=== PATIENT | male | born 1950 | race Caucasian/White ===

== ENCOUNTER → 2019-07-10 | Emergency (ER) | payer OTHER ==
[~2019-07-10] VITALS: Ht 177.8 cm; Wt 72.0 kg
[~2019-07-10] MED LIST: CEPH500C5 PO; cephalexin 500mg capsule PO ONE; normal saline 1000ML IV soln IV ONE
[2019-07-10 11:32] LABS: CLARITY,URINE BLOODY (Clear); COLOR,URINE RED (Yellow); UA COLLECTION TYPE FOLEY CATH
[2019-07-10 11:44] LABS: MUCUS STRANDS FEW /LPF (Neg); RENAL CELLS, URINE FEW /HPF; SQUAMOUS EPITHELIAL CELL,UR NONE SEEN /LPF (FEW); TRANSITIONAL EPI CELLS,URINE FEW /HPF
[2019-07-10 11:47] LABS: AMORPHOUS PHOSPHATES 2+; BACTERIA,URINE 4+ /HPF (Neg); RBC,URINE TNTC /HPF (0-2); WBC CLUMPS,URINE FEW /HPF (NEGATIVE); WBC,URINE TNTC /HPF (0-4)
[2019-07-10 11:48] LABS: HYALINE CASTS 0-3 /LPF (NEGATIVE)
[2019-07-10 12:01] LABS: BASOPHILS % (AUTO) 0.3 % (0-1); EOSINOPHILS % (AUTO) 0.4 % (0-6); HEMATOCRIT 36.5 % (42.0-52.0); HEMOGLOBIN 12.2 g/dl (14.0-17.9); LYMPHOCYTES # (AUTO) 0.9 X10'3 (1.1-4.8); MEAN CORPUSCULAR HEMOGLOBIN 29.7 PG (27.0-31.0); MEAN CORPUSCULAR HGB CONC 33.6 g/dL (33.0-36.5); MEAN CORPUSCULAR VOLUME 88.4 FL (78-98); MEAN PLATELET VOLUME 6.9 FL (7.4-10.4); MONOCYTES # (AUTO) 0.3 X10'3 (0-0.9); MONOCYTES % (AUTO) 3.6 % (2-12); NEUTROPHILS # (AUTO) 7.6 X10'3 (1.8-7.7); NEUTROPHILS % (AUTO) 85.7 % (42-75); PLATELET COUNT 396 X10'3 (140-440); RED BLOOD COUNT 4.12 X10'6 (4.70-6.10); RED CELL DISTRIBUTION WIDTH 13.6 % (11.5-14.5); WHITE BLOOD COUNT 8.9 X10'3 (4.5-11.0)
[2019-07-10 12:12] LABS: PARTIAL THROMBOPLASTIN TIME 27 SECONDS (22-32)
[2019-07-10 12:15] LABS: ALANINE AMINOTRANSFERASE 25 U/L (12-78); ALBUMIN 2.9 G/DL (3.4-5.0); ALBUMIN/GLOBULIN RATIO 0.6 (1.1-1.5); ALKALINE PHOSPHATASE 86 IU/L (46-116); ANION GAP 8 (8-16); ASPARTATE AMINO TRANSFERASE 14 U/L (10-37); BILIRUBIN,TOTAL 0.4 MG/DL (0.1-1.0); BLOOD UREA NITROGEN 14 MG/DL (7-18); BUN/CREATININE RATIO 14.7 (5.4-32.0); CALCIUM 10.6 MG/DL (8.5-10.1); CHLORIDE 99 MMOL/L (99-107); CREATININE 0.95 MG/DL (0.60-1.10); GLUCOSE 111 MG/DL (70-104); MAGNESIUM 1.8 MG/DL (1.5-2.4); SODIUM 134 MMOL/L (135-145); TOTAL CARBON DIOXIDE 27.4 MMOL/L (24-32); TOTAL PROTEIN 7.8 G/DL (6.4-8.2); eGFR 78 ML/MIN
[2019-07-10 14:03] VITALS: BP 152/76
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
== END | disposition home or self-care (01) ==
LOC: ER 08:32
DX: T83.83XA Hemorrhage due to genitourinary prosthetic devices, implants and grafts, initial encounter (principal); N39.0 Urinary tract infection, site not specified; I25.10 Atherosclerotic heart disease of native coronary artery without angina pectoris; I10 Essential (primary) hypertension; Z98.890 Other specified postprocedural states; Z72.89 Other problems related to lifestyle; Z79.2 Long term (current) use of antibiotics; Y69 Unspecified misadventure during surgical and medical care; Y92.89 Other specified places as the place of occurrence of the external cause
CPT/HCPCS: 36415; 51702; 71045; 80053; 81001; 83605; 83735; 84145; 85025; 85610; 85730; 87040; 87077; 87088; 87186; 93005; 96361; 99284

== ENCOUNTER 2019-08-05 15:53 | Inpatient (IN) | payer MEDICARE, OTHER ==
[~2019-08-05] VITALS: Ht 175.3 cm; Wt 75.0 kg
[~2019-08-05 15:53] MED LIST changes: -cephalexin 500mg capsule PO ONE; -normal saline 1000ML IV soln IV ONE
--- NOTE | 2019-08-05 16:48 | NUR ---
pt in ct, labs drawn prior, type and screen drawn. 20g started in rac.
[2019-08-05 18:01] LABS: BASOPHILS % (AUTO) 0.5 % (0-1); EOSINOPHILS % (AUTO) 0 % (0-6); HEMATOCRIT 34.5 % (42.0-52.0); HEMOGLOBIN 11.7 g/dl (14.0-17.9); LYMPHOCYTES # (AUTO) 0.7 X10'3 (1.1-4.8); LYMPHOCYTES % (AUTO) 9.9 % (21-51); MEAN CORPUSCULAR HEMOGLOBIN 29.1 PG (27.0-31.0); MEAN CORPUSCULAR VOLUME 85.6 FL (78-98); MEAN PLATELET VOLUME 7.5 FL (7.4-10.4); MONOCYTES # (AUTO) 0.4 X10'3 (0-0.9); MONOCYTES % (AUTO) 5.2 % (2-12); NEUTROPHILS # (AUTO) 6.3 X10'3 (1.8-7.7); NEUTROPHILS % (AUTO) 84.4 % (42-75); PLATELET COUNT 226 X10'3 (140-440); RED BLOOD COUNT 4.03 X10'6 (4.70-6.10); RED CELL DISTRIBUTION WIDTH 14.4 % (11.5-14.5); WHITE BLOOD COUNT 7.5 X10'3 (4.5-11.0)
[2019-08-05 18:24] LABS: ALANINE AMINOTRANSFERASE 27 U/L (12-78); ALBUMIN/GLOBULIN RATIO 0.7 (1.1-1.5); ALKALINE PHOSPHATASE 72 IU/L (46-116); ANION GAP 12 (8-16); ASPARTATE AMINO TRANSFERASE 22 U/L (10-37); BILIRUBIN,TOTAL 0.3 MG/DL (0.1-1.0); BLOOD UREA NITROGEN 11 MG/DL (7-18); BUN/CREATININE RATIO 8.1 (5.4-32.0); CALCIUM 9.5 MG/DL (8.5-10.1); CHLORIDE 99 MMOL/L (99-107); CREATININE 1.35 MG/DL (0.60-1.10); GLUCOSE 119 MG/DL (70-104); MAGNESIUM 1.6 MG/DL (1.5-2.4); POTASSIUM 3.8 MMOL/L (3.5-5.1); SODIUM 132 MMOL/L (135-145); TOTAL CARBON DIOXIDE 21.3 MMOL/L (24-32); TOTAL PROTEIN 7.5 G/DL (6.4-8.2); eGFR 52 ML/MIN
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
[2019-08-05 18:36] LABS: CLARITY,URINE CLEAR (Clear); COLOR,URINE YELLOW (Yellow); GLUCOSE, URINE NEGATIVE (Neg); KETONES,URINE NEGATIVE (Neg); LEUKOCYTE ESTERASE ,URINE NEGATIVE (Neg); NITRITES, URINE NEGATIVE (Neg); OCCULT BLOOD,URINE NEGATIVE (Neg); PROTEIN,URINE NEGATIVE (Neg); UROBILINOGEN,URINE 0.2 E.U/dL (0.2-1.0)
[2019-08-05 18:44] LABS: UA COLLECTION TYPE STRAIGHT CATH
[2019-08-05] MEDS ORDERED: normal saline 1000ML IV soln IVB ONE (19:05)
[2019-08-05] MEDS ORDERED: ATEN25TA7 PO (20:29)
[2019-08-05] MEDS ORDERED: ROSU40TA PO (20:29)
[2019-08-05] MEDS ORDERED: SULF-14 PO (20:29)
[2019-08-05] MEDS ORDERED: GABA-534 PO (20:29)
[2019-08-05] MEDS ORDERED: VARE1TAB21 PO (20:29)
[2019-08-05] MEDS ORDERED: CLOP75TA33 PO (20:29)
[2019-08-05] MEDS ORDERED: CYCL-394 PO (20:29)
[2019-08-05] MEDS ORDERED: magnesium 2GM in 50ml NS 50 ML IV PRN (20:35)
[2019-08-05] MEDS ORDERED: ondansetron/PF 4mg/2ml inj IV PRN (20:35)
[2019-08-05] MEDS ORDERED: magnesium 4gm in 100ml NS 100 ML IV PRN (20:35)
[2019-08-05] MEDS ORDERED: acetaminophen 325mg tablet PO PRN ×2 (20:35)
[2019-08-05] MEDS ORDERED: mag hydrox/Alum hydrox/simeth 30ml oral suspension PO PRN (20:35)
[2019-08-05] MEDS ORDERED: magnesium Cl slow-release 64mg tablet PO PRN (20:35)
[2019-08-05] MEDS ORDERED: magnesium hydroxide 30ml (MOM) UD suspension PO PRN (20:35)
[2019-08-05] MEDS ORDERED: potassium CL 10mEq/100ml bag 100 ML IV PRN ×2 (20:35)
[2019-08-05] MEDS ORDERED: potassium Cl 20 mEq SR tablet PO PRN ×2 (20:35)
[2019-08-05 22:00] VITALS: BP 134/68
--- NOTE | 2019-08-05 22:00 | NUR ---
Patient in room ED 12. I have received report from LOI Ham and had the opportunity to ask questions and assume patient care.
[2019-08-05] MEDS: normal saline 1000ml 1,000 ML IV SCH (22:25)
[2019-08-06 06:00] VITALS: BP 127/58
--- NOTE | 2019-08-06 06:16 | NUR ---
received report from sam thomas
--- NOTE | 2019-08-06 06:21 | NUR ---
Problems reprioritized. Patient report given, questions answered & plan of care reviewed with LOI Marshall.
[2019-08-06 06:22] LABS: BASOPHILS % (AUTO) 0.5 % (0-1); EOSINOPHILS % (AUTO) 0.1 % (0-6); HEMATOCRIT 30.1 % (42.0-52.0); HEMOGLOBIN 10.3 g/dl (14.0-17.9); LYMPHOCYTES # (AUTO) 0.8 X10'3 (1.1-4.8); LYMPHOCYTES % (AUTO) 18.5 % (21-51); MEAN CORPUSCULAR HEMOGLOBIN 29.2 PG (27.0-31.0); MEAN CORPUSCULAR HGB CONC 34.2 g/dL (33.0-36.5); MEAN CORPUSCULAR VOLUME 85.4 FL (78-98); MEAN PLATELET VOLUME 7.1 FL (7.4-10.4); MONOCYTES # (AUTO) 0.3 X10'3 (0-0.9); MONOCYTES % (AUTO) 8.1 % (2-12); NEUTROPHILS # (AUTO) 3.2 X10'3 (1.8-7.7); NEUTROPHILS % (AUTO) 72.8 % (42-75); PLATELET COUNT 186 X10'3 (140-440); RED BLOOD COUNT 3.52 X10'6 (4.70-6.10); RED CELL DISTRIBUTION WIDTH 14.2 % (11.5-14.5); WHITE BLOOD COUNT 4.3 X10'3 (4.5-11.0)
[2019-08-06 06:36] LABS: ALBUMIN 2.6 G/DL (3.4-5.0); ANION GAP 8 (8-16); BLOOD UREA NITROGEN 9 MG/DL (7-18); BUN/CREATININE RATIO 8.8 (5.4-32.0); CALCIUM 9.6 MG/DL (8.5-10.1); CHLORIDE 104 MMOL/L (99-107); CREATININE 1.02 MG/DL (0.60-1.10); GLUCOSE 103 MG/DL (70-104); MAGNESIUM 1.8 MG/DL (1.5-2.4); POTASSIUM 3.7 MMOL/L (3.5-5.1); SODIUM 135 MMOL/L (135-145); TOTAL CARBON DIOXIDE 22.9 MMOL/L (24-32); eGFR 72 ML/MIN
[2019-08-06 08:00] VITALS: BP_SYST 100; BP_SYST 106; BP_SYST 127; BP_DIAS 65; BP_DIAS 72; BP_DIAS 82
[2019-08-06] MEDS: enoxaparin 40mg/0.4ml syringe SQ SCH (08:00)
[2019-08-06] MEDS: K and/or MAG REPLACEMENT MC SCH ×2 (08:00→20:00)
[2019-08-06] MEDS: atorvastatin 10mg tablet PO SCH (08:07)
[2019-08-06] MEDS: cyclobenzaprine 10mg tablet PO SCH ×3 (08:07→20:42)
[2019-08-06] MEDS: gabapentin 100mg capsule PO SCH ×3 (08:07→20:42)
[2019-08-06] MEDS: clopidogrel 75mg tablet PO SCH (08:07)
[2019-08-06] MEDS: normal saline 1000ml 1,000 ML IV SCH ×2 (08:09→16:34)
[2019-08-06] MEDS: atenolol 25mg tablet PO SCH (08:13)
[2019-08-06 10:00] VITALS: BP 106/68
--- NOTE | 2019-08-06 18:23 | NUR ---
GAVE REPORT TO LOI BARTLETT
--- NOTE | 2019-08-06 18:25 | NUR ---
Patient in room ORTHO 4011. I have received report from Joanna MONSIVAIS and had the opportunity to ask questions and assume patient care.
[2019-08-06 22:00] VITALS: BP_SYST 106; BP_SYST 119; BP_SYST 87; BP_DIAS 54; BP_DIAS 74; BP_DIAS 79
[2019-08-07] MEDS: normal saline 1000ml 1,000 ML IV SCH ×2 (02:34→13:56)
[2019-08-07 06:00] VITALS: BP 108/72
--- NOTE | 2019-08-07 06:25 | NUR ---
Problems reprioritized. Patient report given, questions answered & plan of care reviewed with Laura MONSIVAIS.
--- NOTE | 2019-08-07 06:37 | NUR ---
Patient in room ORTHO 4011. I have received report from LOI Padilla and had the opportunity to ask questions and assume patient care.
[2019-08-07 06:44] LABS: BASOPHILS % (AUTO) 0.7 % (0-1); EOSINOPHILS # (AUTO) 0.1 X10'3 (0-0.9); EOSINOPHILS % (AUTO) 1.7 % (0-6); HEMATOCRIT 30.4 % (42.0-52.0); HEMOGLOBIN 10.5 g/dl (14.0-17.9); LYMPHOCYTES # (AUTO) 1.2 X10'3 (1.1-4.8); LYMPHOCYTES % (AUTO) 26.4 % (21-51); MEAN CORPUSCULAR HEMOGLOBIN 29.3 PG (27.0-31.0); MEAN CORPUSCULAR HGB CONC 34.6 g/dL (33.0-36.5); MEAN CORPUSCULAR VOLUME 84.8 FL (78-98); MONOCYTES # (AUTO) 0.4 X10'3 (0-0.9); MONOCYTES % (AUTO) 10.2 % (2-12); NEUTROPHILS # (AUTO) 2.7 X10'3 (1.8-7.7); PLATELET COUNT 188 X10'3 (140-440); RED BLOOD COUNT 3.58 X10'6 (4.70-6.10); RED CELL DISTRIBUTION WIDTH 14.5 % (11.5-14.5); WHITE BLOOD COUNT 4.4 X10'3 (4.5-11.0)
[2019-08-07 07:22] LABS: ALBUMIN 2.6 G/DL (3.4-5.0); ANION GAP 7 (8-16); BLOOD UREA NITROGEN 7 MG/DL (7-18); BUN/CREATININE RATIO 8.4 (5.4-32.0); CALCIUM 9.3 MG/DL (8.5-10.1); CHLORIDE 104 MMOL/L (99-107); CREATININE 0.83 MG/DL (0.60-1.10); GLUCOSE 83 MG/DL (70-104); POTASSIUM 3.9 MMOL/L (3.5-5.1); SODIUM 136 MMOL/L (135-145); TOTAL CARBON DIOXIDE 24.8 MMOL/L (24-32); eGFR > 90 ML/MIN
[2019-08-07 07:36] VITALS: BP 95/65
[2019-08-07] MEDS: clopidogrel 75mg tablet PO SCH (07:43)
[2019-08-07] MEDS: atorvastatin 10mg tablet PO SCH (07:43)
[2019-08-07] MEDS: enoxaparin 40mg/0.4ml syringe SQ SCH ×2 (07:43→07:54)
[2019-08-07] MEDS: gabapentin 100mg capsule PO SCH ×3 (07:43→20:25)
[2019-08-07] MEDS: cyclobenzaprine 10mg tablet PO SCH ×3 (07:44→20:25)
[2019-08-07] MEDS: atenolol 25mg tablet PO SCH (07:45)
[2019-08-07 08:00] VITALS: BP_SYST 102; BP_SYST 67; BP_SYST 78; BP_DIAS 43; BP_DIAS 48; BP_DIAS 65
[2019-08-07] MEDS: K and/or MAG REPLACEMENT MC SCH ×2 (08:00→20:00)
[2019-08-07 10:00] VITALS: BP 102/65
--- NOTE | 2019-08-07 13:00 | NUR ---
Dr. Moraes at bedside. Order received for tacos hose with orthostatic B/P to be check 2 hours after application.
[2019-08-07] MEDS: fludrocortisone acetate 0.1mg tablet PO SCH (17:06)
[2019-08-07 18:00] VITALS: BP_SYST 107; BP_SYST 72; BP_SYST 79; BP_DIAS 46; BP_DIAS 50; BP_DIAS 70
--- NOTE | 2019-08-07 18:15 | NUR ---
Patient in room ORTHO 4011. I have received report from Laura MONSIVAIS and had the opportunity to ask questions and assume patient care.
--- NOTE | 2019-08-07 18:15 | NUR ---
Problems reprioritized. Patient report given, questions answered & plan of care reviewed with LOI Padilla.
[2019-08-07 22:00] VITALS: BP_SYST 101; BP_SYST 66; BP_SYST 91; BP_DIAS 36; BP_DIAS 57; BP_DIAS 62
[2019-08-08] MEDS: normal saline 1000ml 1,000 ML IV SCH ×3 (03:13→18:34)
[2019-08-08 06:00] VITALS: BP 119/71
[2019-08-08 06:11] LABS: BASOPHILS % (AUTO) 0.8 % (0-1); EOSINOPHILS # (AUTO) 0.1 X10'3 (0-0.9); EOSINOPHILS % (AUTO) 3.3 % (0-6); HEMATOCRIT 29.9 % (42.0-52.0); HEMOGLOBIN 10.1 g/dl (14.0-17.9); LYMPHOCYTES # (AUTO) 1.3 X10'3 (1.1-4.8); LYMPHOCYTES % (AUTO) 31.5 % (21-51); MEAN CORPUSCULAR HEMOGLOBIN 29.3 PG (27.0-31.0); MEAN CORPUSCULAR VOLUME 86.2 FL (78-98); MEAN PLATELET VOLUME 7.2 FL (7.4-10.4); MONOCYTES # (AUTO) 0.4 X10'3 (0-0.9); MONOCYTES % (AUTO) 9.9 % (2-12); NEUTROPHILS # (AUTO) 2.2 X10'3 (1.8-7.7); NEUTROPHILS % (AUTO) 54.5 % (42-75); PLATELET COUNT 198 X10'3 (140-440); RED BLOOD COUNT 3.46 X10'6 (4.70-6.10); RED CELL DISTRIBUTION WIDTH 14.2 % (11.5-14.5)
[2019-08-08 06:19] LABS: ALBUMIN 2.4 G/DL (3.4-5.0); ANION GAP 7 (8-16); BLOOD UREA NITROGEN 7 MG/DL (7-18); BUN/CREATININE RATIO 8.9 (5.4-32.0); CALCIUM 9.5 MG/DL (8.5-10.1); CHLORIDE 106 MMOL/L (99-107); CREATININE 0.79 MG/DL (0.60-1.10); GLUCOSE 96 MG/DL (70-104); POTASSIUM 3.8 MMOL/L (3.5-5.1); SODIUM 140 MMOL/L (135-145); TOTAL CARBON DIOXIDE 27.1 MMOL/L (24-32); eGFR > 90 ML/MIN
--- NOTE | 2019-08-08 06:38 | NUR ---
Problems reprioritized. Patient report given, questions answered & plan of care reviewed with Farzaneh MONSIVAIS.
[2019-08-08 07:00] VITALS: BP_SYST 120; BP_SYST 70; BP_SYST 86; BP_DIAS 40; BP_DIAS 54; BP_DIAS 74
--- NOTE | 2019-08-08 07:11 | NUR ---
Patient in room ORTHO 4011. I have received report from LOI owng and had the opportunity to ask questions and assume patient care.
[2019-08-08] MEDS: K and/or MAG REPLACEMENT MC SCH ×2 (07:51→20:00)
[2019-08-08] MEDS: cyclobenzaprine 10mg tablet PO SCH ×3 (07:54→20:08)
[2019-08-08] MEDS: clopidogrel 75mg tablet PO SCH (07:54)
[2019-08-08] MEDS: atorvastatin 10mg tablet PO SCH (07:54)
[2019-08-08] MEDS: fludrocortisone acetate 0.1mg tablet PO SCH (07:54)
[2019-08-08] MEDS: gabapentin 100mg capsule PO SCH ×3 (07:55→20:08)
[2019-08-08] MEDS: enoxaparin 40mg/0.4ml syringe SQ SCH (08:00)
[2019-08-08 11:00] VITALS: BP 147/88
--- NOTE | 2019-08-08 17:06 | NUR ---
Patient in room ORTHO 4011. I have received report from Farzaneh MONSIVAIS and had the opportunity to ask questions and assume patient care.
[2019-08-08 18:00] VITALS: BP_SYST 130; BP_SYST 84; BP_SYST 92; BP_DIAS 58; BP_DIAS 61; BP_DIAS 71
--- NOTE | 2019-08-08 18:16 | NUR ---
Problems reprioritized. Patient report given, questions answered & plan of care reviewed with Leslye MONSIVAIS.
--- NOTE | 2019-08-08 18:19 | NUR ---
RECEIVED REPORT FROM BHUMI MONSIVAIS AND ASSUMED PATIENT CARE
[2019-08-08 18:21] VITALS: BP 130/71
[2019-08-08 22:00] VITALS: BP 121/71
[2019-08-09] MEDS: normal saline 1000ml 1,000 ML IV SCH (04:34)
[2019-08-09 06:00] VITALS: BP 138/81
[2019-08-09 06:04] LABS: BASOPHILS % (AUTO) 0.7 % (0-1); EOSINOPHILS # (AUTO) 0.1 X10'3 (0-0.9); EOSINOPHILS % (AUTO) 3.9 % (0-6); HEMATOCRIT 29.6 % (42.0-52.0); HEMOGLOBIN 10.1 g/dl (14.0-17.9); LYMPHOCYTES # (AUTO) 1.3 X10'3 (1.1-4.8); LYMPHOCYTES % (AUTO) 34.2 % (21-51); MEAN CORPUSCULAR HEMOGLOBIN 29.1 PG (27.0-31.0); MEAN CORPUSCULAR HGB CONC 34.3 g/dL (33.0-36.5); MEAN CORPUSCULAR VOLUME 84.9 FL (78-98); MONOCYTES # (AUTO) 0.3 X10'3 (0-0.9); MONOCYTES % (AUTO) 8.4 % (2-12); NEUTROPHILS % (AUTO) 52.8 % (42-75); PLATELET COUNT 225 X10'3 (140-440); RED BLOOD COUNT 3.48 X10'6 (4.70-6.10); RED CELL DISTRIBUTION WIDTH 14.3 % (11.5-14.5); WHITE BLOOD COUNT 3.7 X10'3 (4.5-11.0)
--- NOTE | 2019-08-09 06:05 | NUR ---
Patient in room ORTHO 4011. I have received report from KVNG MONSIVAIS and had the opportunity to ask questions and assume patient care.
--- NOTE | 2019-08-09 06:08 | NUR ---
REPORT GIVEN TO CLARIBEL MONSIVAIS
[2019-08-09 06:23] LABS: ALBUMIN 2.4 G/DL (3.4-5.0); ANION GAP 6 (8-16); BLOOD UREA NITROGEN 9 MG/DL (7-18); BUN/CREATININE RATIO 12.5 (5.4-32.0); CALCIUM 8.9 MG/DL (8.5-10.1); CHLORIDE 108 MMOL/L (99-107); CREATININE 0.72 MG/DL (0.60-1.10); GLUCOSE 98 MG/DL (70-104); MAGNESIUM 2.1 MG/DL (1.5-2.4); POTASSIUM 3.7 MMOL/L (3.5-5.1); SODIUM 140 MMOL/L (135-145); TOTAL CARBON DIOXIDE 25.9 MMOL/L (24-32); eGFR > 90 ML/MIN
[2019-08-09] MEDS: K and/or MAG REPLACEMENT MC SCH (07:24)
[2019-08-09] MEDS: fludrocortisone acetate 0.1mg tablet PO SCH (07:36)
[2019-08-09] MEDS: enoxaparin 40mg/0.4ml syringe SQ SCH (07:37)
[2019-08-09] MEDS: atorvastatin 10mg tablet PO SCH (07:37)
[2019-08-09] MEDS: cyclobenzaprine 10mg tablet PO SCH (07:37)
[2019-08-09] MEDS: gabapentin 100mg capsule PO SCH (07:37)
[2019-08-09] MEDS: clopidogrel 75mg tablet PO SCH (07:37)
[2019-08-09 10:00] VITALS: BP 134/91
[2019-08-09 10:30] VITALS: BP_SYST 132; BP_SYST 134; BP_SYST 91; BP_DIAS 62; BP_DIAS 82; BP_DIAS 91
--- NOTE | 2019-08-09 10:50 | NUR ---
PAGER ID: [phone] MESSAGE: [id number] TONI BARAKAT PATIENTS ORTHOSTATICS ARE IN, AND POSITIVE CLARIBEL [id number]
[2019-08-09] MEDS ORDERED: FLO0.1T PO (11:59)
== END 2019-08-09 13:43 | disposition home or self-care (01) | DRG 312 ==
LOC: ER 15:54 → ED HOLD 20:34 → ORTHO 4S 22:05 → OBSVTOIN 08-07 09:30
PROVIDERS: ADMIT Hospitalist; ATTEND Family Medicine
PROC: 4A10X4Z Monitoring of Central Nervous Electrical Activity, External Approach (ICD-10-PCS; principal; 2019-08-06)
DX: I95.1 Orthostatic hypotension (principal); N17.0 Acute kidney failure with tubular necrosis; N39.0 Urinary tract infection, site not specified; D64.9 Anemia, unspecified; E78.5 Hyperlipidemia, unspecified; W18.39XA Other fall on same level, initial encounter; M50.30 Other cervical disc degeneration, unspecified cervical region; E86.0 Dehydration; I10 Essential (primary) hypertension; I25.10 Atherosclerotic heart disease of native coronary artery without angina pectoris; I25.2 Old myocardial infarction; Z95.5 Presence of coronary angioplasty implant and graft; Y93.89 Activity, other specified; Y92.89 Other specified places as the place of occurrence of the external cause; Y99.8 Other external cause status; Z79.899 Other long term (current) drug therapy
CPT/HCPCS: 36415; 70450; 72125; 80048; 80053; 81003; 83735; 84439; 84443; 84484; 85025; 87081; 93005; 93306; 93880; 95816; 97110; 97161; 97530; 99285; G0378; J1650; J7030

== ENCOUNTER 2020-07-09 14:10 | Outpatient (CLI) | payer OTHER ==
[~2020-07-09 14:10] MED LIST changes: +ATEN25TA7 PO; -CEPH500C5 PO; +CLOP75TA33 PO; +CYCL-394 PO; +FLO0.1T PO; +GABA-534 PO; +ROSU40TA PO; +VARE1TAB21 PO
== END 2020-07-09 23:59 | disposition home or self-care (01) ==
LOC: CARD DIAG 14:10
PROVIDERS: ATTEND Orthopaedic Surgery
DX: I08.0 Rheumatic disorders of both mitral and aortic valves (principal); I25.10 Atherosclerotic heart disease of native coronary artery without angina pectoris
CPT/HCPCS: 93306

== ENCOUNTER 2021-03-27 16:26 | Emergency (ER) | payer OTHER ==
[~2021-03-27] VITALS: Ht 177.8 cm; Wt 83.1 kg
[2021-03-27 17:17] VITALS: BP 117/74
== END 2021-03-27 18:44 | disposition home or self-care (01) ==
LOC: ER 16:28
DX: M25.521 Pain in right elbow (principal); I25.10 Atherosclerotic heart disease of native coronary artery without angina pectoris; I10 Essential (primary) hypertension; Z87.440 Personal history of urinary (tract) infections; Z98.890 Other specified postprocedural states; Z72.89 Other problems related to lifestyle; Z79.899 Other long term (current) drug therapy
CPT/HCPCS: 73080; 99283

== ENCOUNTER 2021-03-28 15:26 | Emergency (ER) | payer OTHER, MEDICARE ==
[~2021-03-28] VITALS: Ht 177.8 cm; Wt 85.9 kg
[2021-03-28 15:28] VITALS: BP 125/71
== END 2021-03-28 18:42 | disposition home or self-care (01) ==
LOC: ER 15:27
DX: S52.124D Nondisplaced fracture of head of right radius, subsequent encounter for closed fracture with routine healing (principal); I25.10 Atherosclerotic heart disease of native coronary artery without angina pectoris; I10 Essential (primary) hypertension; Z95.5 Presence of coronary angioplasty implant and graft; Z87.440 Personal history of urinary (tract) infections; Z72.89 Other problems related to lifestyle; Z79.899 Other long term (current) drug therapy; W01.0XXD Fall on same level from slipping, tripping and stumbling without subsequent striking against object, subsequent encounter
CPT/HCPCS: 29105; 99283